=== PATIENT | male | born 1985 | race Caucasian/White ===

== ENCOUNTER 2024-03-14 14:18 | Emergency (ER) | payer SELFPAY ==
[~2024-03-14] VITALS: Ht 180.3 cm; Wt 106.6 kg
[2024-03-14 14:18] VITALS: BP 147/92; PULSE 97; RESP 18; TEMP 98.6; O2SAT 95
[2024-03-14] MEDS ORDERED: WATER ONE (14:37)
[2024-03-14] MEDS ORDERED: KEFLEX PO ONE (15:10)
[2024-03-14] MEDS ORDERED: BOOSTRIX IM ONE (15:10)
[2024-03-14] MEDS ORDERED: LIDOCAINE 1% VIAL ONE (15:12)
[2024-03-14] MEDS: KEFLEX PO STA (15:18)
[2024-03-14] MEDS: BOOSTRIX IM ONE (15:18)
[2024-03-14] MEDS ORDERED: CEPH500T PO (15:33)
[2024-03-14] MEDS ORDERED: TRIPLE ANTIBIOTIC OINTMENT TP ONE (15:35)
[2024-03-14 15:41] VITALS: BP 127/73; PULSE 88; RESP 18; TEMP 98.6; O2SAT 95
== END 2024-03-14 15:42 | disposition home or self-care (01) ==
LOC: ER 14:18
DX: S71.111A Laceration without foreign body, right thigh, initial encounter (principal); E07.9 Disorder of thyroid, unspecified; X58.XXXA Exposure to other specified factors, initial encounter; Y93.89 Activity, other specified; Y92.89 Other specified places as the place of occurrence of the external cause; Y99.8 Other external cause status
CPT/HCPCS: 99283; 90471; 12001; 90715; A4217; A4649; J2001